=== PATIENT | male | born 1950 | race Caucasian/White ===

== ENCOUNTER 2017-06-01 08:23 | Day surgery (SDC) | payer MEDICARE, BC ==
[2017-05-30 10:09] VITALS: BMI 27.7
[~2017-06-01 08:23] MED LIST: LACTATED RINGERS 1,000 ML IV SCH
[2017-06-01 09:28] VITALS: TEMP 98.1
[2017-06-01] MEDS ORDERED: PROPOFOL 10 MG/ML 20 ML VIAL IV ONE (10:02)
--- NOTE | 2017-06-01 10:39 | P.PCN ---
Date of Procedure: 06/01/17 Procedure(s) Performed: Procedure: Total colonoscopy. Preoperative diagnosis: Screening for neoplasia. Postoperative diagnosis: Sigmoid diverticulosis with no evidence of acute diverticulitis, strictures, polyps or cancer Preparation: HalfLytely prep. Sedation: Was provided by anesthesia. Brief clinical history: The patient is a 66-year-old male who is referred for this evaluation for screening for neoplasia age being his risk factor. He had to prior exams over the years but there is no family history of colon cancer or any prior polyps that he recalls. At this time, he has no abdominal complaints , bleeding or anemia. Procedure: With the patient on his left lateral decubitus position and after informed consent and adequate sedation, the perianal area was inspected and it did not show any fissures or fistulas. There were no masses felt on digital rectal examination. The Olympus CFQ 160L video colonoscope was then inserted in the rectum in the usual fashion and advanced to the cecum. There were multiple diverticular orifices seen scattered in the sigmoid with no evidence of acute diverticulitis or strictures. The mucosa appeared healthy. No polyps or tumors were seen or any other pathology. I retroflexed the endoscope in the rectum before the endoscope was withdrawn. The patient tolerated the procedure well. Plan: The patient was reassured. Discussed dietary measures. He will follow up with you as planned and I recommended repeat exam in 10 years.
[2017-06-01 10:41] VITALS: RESP 16
[2017-06-01 10:51] VITALS: BP 119/65; PULSE 65
== END 2017-06-01 10:58 | disposition home or self-care (01) ==
LOC: ORWHC2ENDO 08:23
DX: Z12.11 Encounter for screening for malignant neoplasm of colon (principal); K57.30 Diverticulosis of large intestine without perforation or abscess without bleeding; I10 Essential (primary) hypertension; E78.5 Hyperlipidemia, unspecified; M19.90 Unspecified osteoarthritis, unspecified site; Z79.1 Long term (current) use of non-steroidal anti-inflammatories (NSAID); Z79.899 Other long term (current) drug therapy
CPT/HCPCS: J2704; G0121; 45378

== ENCOUNTER 2023-02-01 20:38 | Inpatient (IN) | payer BC, MEDICARE ==
[2023-02-01 21:54] LABS: Basophils % (A) 0 %; Eosinophils # (A) 0.1 k/uL (0-0.7); Eosinophils % (A) 0 %; HCT 32.2 % (39.0-53.0); HGB 10.6 gm/dL (13.0-17.5); Lymphocytes # (A) 1.2 k/uL (1.0-4.8); Lymphocytes % (A) 9 %; MCV 84.9 fL (80.0-100.0); Mean Platelet Volume 7.2; Monocytes # (A) 0.9 k/uL (0-1.0); Monocytes % (A) 7 %; Neutrophils # (A) 11.3 k/uL (1.3-7.7); Neutrophils % (A) 83 %; Platelet Count 260 k/uL (150-450); RBC 3.79 m/uL (4.30-5.90); WBC 13.6 k/uL (3.8-10.6)
[2023-02-01 22:00] LABS: ALT 98 U/L (4-49); AST 55 U/L (17-59); African American GFR (CKD) >90 (>60 ml/min/1.73 sqM); Albumin 3.1 g/dL (3.5-5.0); Alkaline Phosphatase 145 U/L (38-126); Anion Gap 10 mmol/L; Blood Urea Nitrogen 27 mg/dL (9-20); Calcium 8.7 mg/dL (8.4-10.2); Carbon Dioxide 22 mmol/L (22-30); Chloride 101 mmol/L (98-107); Glucose 154 mg/dL (74-99); Non-African American GFR(CKD) >90 (>60 ml/min/1.73 sqM); Potassium 4.2 mmol/L (3.5-5.1); Sodium 133 mmol/L (137-145); Total Bilirubin 0.6 mg/dL (0.2-1.3); Total Protein 6.1 g/dL (6.3-8.2)
--- NOTE | 2023-02-01 22:09 | XR ---
EXAMINATION TYPE: XR chest 1V portable DATE OF EXAM: 02/01/2023 10:02 PM COMPARISON: Chest radiographs from; 01/19/2023 TECHNIQUE: XR chest 1V portable Frontal view of the chest. CLINICAL INDICATION:Male, 72 years old with history of syncope; FINDINGS: Lungs/Pleura: Low lung volumes are present. There is no evidence of pleural effusion, focal consolida tion, or pneumothorax. Pulmonary vascularity: Unremarkable. Heart/mediastinum: Cardiomediastinal silhouette is enlarged and stable. Musculoskeletal: No acute osseous pathology. There is lower spine fixation hardware is present. IMPRESSION: Low lung volumes with a generalized hazy appearance which could represent atelectasis versus pulmonar y edema correlate with serum BNP.
[2023-02-01 22:17] LABS: Partial Thromboplastin Time 22.5 sec (22.0-30.0); Prothrombin Time 10.6 sec (9.0-12.0)
[2023-02-02] MEDS ORDERED: MORPHINE SULFATE 4 MG/ML SYRINGE IVP STA (00:08)
--- NOTE | 2023-02-02 00:20 | CT ---
EXAM: CT Thoracic Spine With Intravenous Contrast CLINICAL HISTORY: ITS.REASON CT Reason: Back pain, recent surg TECHNIQUE: Axial computed tomography images of the thoracic spine with intravenous contrast. CTDI is 16.2 mGy and DLP is 1302.4 mGy-cm. This CT exam was performed using one or more of the following dose reduction techniques: automated exposure control, adjustment of the mA and/or kV according to patient size, and/or use of iterative reconstruction technique. COMPARISON: No relevant prior studies available. FINDINGS: Vertebrae: There is a minimally displaced acute/subacute superior endplate fracture of the T12 vertebral body. Patient is status post posterior fusion of T10-L1 with transpedicular screws infection rods in place. No evidence of surgical hardware complication. Incomplete segmentation of the T3 and T4 segments. Discs/spinal canal/neural foramina: No acute findings. No spinal canal stenosis. Soft tissues: Right lower lobe consolidation with moderate pleural effusion. IMPRESSION: Minimally displaced acute/subacute superior endplate fracture of the T12 vertebral body status post posterior fusion of T10-L1 with expected postsurgical changes. 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 Right lower lobe consolidation with moderate pleural effusion. EXAM: CT Lumbar Spine With Intravenous Contrast CLINICAL HISTORY: ITS.REASON CT Reason: Back pain, recent surg TECHNIQUE: Axial computed tomography images of the lumbar spine with intravenous contrast. CTDI is 16.2 mGy and DLP is 1302.4 mGy-cm. This CT exam was performed using one or more of the following dose reduction techniques: automated exposure control, adjustment of the mA and/or kV according to patient size, and/or use of iterative reconstruction technique. COMPARISON: No relevant prior studies available. FINDINGS: Vertebrae: Chronic lytic spondylolisthesis of L5 on S1. Status post posterior fusion of T10-L1 with transpedicular screws and connecting rods in place. Minimally displaced fractures of the right L1 and L2 transverse processes. There is ankylosis of the sacroiliac joints. Positive Oldham sign at L3-4, L4-5 and L5-S1. Discs/spinal canal/neural foramina: No acute findings. No spinal canal stenosis. Soft tissues: There is a right renal soft tissue mass measuring 64 x 79 mm, incompletely visualized. Diverticulosis of the sigmoid colon. IMPRESSION: There is an acute/ subacute minimally displaced fractures of the right L1 and bilateral L2 transverse processes, which likely occurred concurrently with a T12 superior endplate fracture. Status post posterior fusion of T10-L1 with expected postsurgical changes. There is a right renal mass measuring 79 x 64 mm concerning for neoplasm. Chronic lytic spondylolisthesis of L5 on S1.
[2023-02-02] MEDS ORDERED: NALOXONE 0.4 MG/ML 1 ML VIAL IV PRN (03:46)
--- NOTE | 2023-02-02 03:48 | ED ---
General Adult HPI - General Chief complaint: Syncope Stated complaint: HIGH BLOOD PRESSURE Time Seen by Provider: 02/01/23 21:18 Source: patient Mode of arrival: EMS Limitations: no limitations - History of Present Illness Initial comments: This is a 72-year-old male with a past mental history including recent thoracic spine surgery as well as hypertension presents emergency department for intermittent hypotension as well as syncope. The patient stated that he had a fall in the bathtub and being in December and suffered spinal fractures which were repaired at an outside facility. The patient stated since that time, he has had low blood pressure with standing up and sitting up. The patient had been seen and evaluated in the clinic were a nurse practitioner put the patient on Midodrine for these low blood pressures despite the patient having normally high blood pressure. The patient stated that his blood pressure has been "all over the place" and stated that he did have a syncopal episode where he stood up and did fall back into his recliner. The patient stated that because of the orthostatic hypotension, he is unable to get up and move around and help rehabilitate his back from spinal surgery. 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 The patient himself was resting in bed without any acute distress at this time. - Related Data Home Medications Medication Instructions Recorded Confirmed Ibuprofen 400 mg PO Q8HR PRN 05/30/17 06/01/17 Simvastatin [Zocor] 40 mg PO Q48H 05/30/17 06/01/17 lisinopriL [Zestril] 20 mg PO DAILY 05/30/17 06/01/17 Allergies Allergy/AdvReac Type Severity Reaction Status Date / Time No Known Allergies Allergy Verified 02/01/23 20:47 Review of Systems ROS Statement: Those systems with pertinent positive or pertinent negative responses have been documented in the HPI. ROS Other: All systems not noted in ROS Statement are negative. Past Medical History Past Medical History: Hyperlipidemia, Hypertension, Osteoarthritis (OA) Additional Past Medical History / Comment(s): BACK PAIN T-10-11 FX History of Any Multi-Drug Resistant Organisms: None Reported Past Surgical History: Back Surgery Additional Past Surgical History / Comment(s): FOOT SURGERY, BACK FUSION T10-T11 Past Anesthesia/Blood Transfusion Reactions: No Reported Reaction, Motion Sickness Past Psychological History: No Psychological Hx Reported Past Alcohol Use History: Daily Past Drug Use History: None Reported - Past Family History Mother Family Medical History: Cancer Father Family Medical History: Cancer General Exam Limitations: no limitations General appearance: alert, in no apparent distress Head exam: Present: atraumatic, normocephalic, normal inspection Eye exam: Present: normal appearance, PERRL Pupils: Present: normal accommodation ENT exam: Present: normal exam, normal oropharynx, mucous membranes moist Neck exam: Present: normal inspection, full ROM Respiratory exam: Present: normal lung sounds bilaterally Cardiovascular Exam: Present: regular rate, normal rhythm, normal heart sounds GI/Abdominal exam: Present: soft, normal bowel sounds Extremities exam: Present: normal inspection, full ROM Back exam: Present: normal inspection, other (Surgical scar intact without any signs of erythema or induration noted.) Neurological exam: Present: alert, oriented X3, CN II-XII intact Psychiatric exam: Present: normal affect, normal mood Skin exam: Present: warm, dry Course Vital Signs 02/01/23 02/01/23 02/01/23 20:47 21:50 22:00 Temperature 100.1 F H Pulse Rate 98 92 93 Respiratory 16 14 12 Rate Blood Pressure 156/80 159/71 159/71 O2 Sat by Pulse 94 L 94 L 93 L Oximetry 02/01/23 02/02/23 02/02/23 23:00 00:00 00:10 Temperature Pulse Rate 91 85 85 Respiratory 20 13 16 Rate Blood Pressure 150/67 158/71 159/67 O2 Sat by Pulse 93 L 94 L 94 L Oximetry 02/02/23 02/02/23 02/02/23 01:00 02:00 02:10 Temperature Pulse Rate 80 77 75 Respiratory 12 12 16 Rate Blood Pressure 124/111 144/63 147/59 O2 Sat by Pulse 92 L 94 L 92 L Oximetry 02/02/23 02/02/23 03:00 04:00 Temperature Pulse Rate 82 79 Respiratory 12 12 Rate Blood Pressure 148/67 144/66 O2 Sat by Pulse 94 L 94 L Oximetry EKG Findings - EKG Comments: EKG Findings:: An EKG was obtained and was interpreted by myself showing a rate of 97, QRS duration 107 and QTC of 412. This EKG showed a normal sinus rhythm with no ST segment elevation or depression. Medical Decision Making - Medical Decision Making Was pt. sent in by a medical professional or institution (, PA, [employer]INEER, urgent care, hospital, or long term...) When possible be specific @ -No Did you speak to anyone other than the patient for history (EMS, parent, family, police, friend...)? What history was obtained from this source @ -Yes, I spoke with the patient's and sent her at the bedside and did state that the patient has become increasingly dizzy every time he sits up and stands. They also noted that the patient and normal high blood pressure and that on the new medication has become significantly elevated. Did you review nursing and triage notes (agree or disagree)? Why? @ -I reviewed and agree with nursing and triage notes Were old charts reviewed (outside hosp., previous admission, EMS record, old EKG, old radiological studies, urgent care reports/EKG's, long term records)? Report findings @ -No old charts were reviewed Differential Diagnosis (chest pain, altered mental status, abdominal pain women, abdominal pain men, vaginal bleeding, weakness, fever, dyspnea, syncope, headache, dizziness, GI bleed, back pain, seizure, CVA, palpatations, mental health)? @ -Orthostatic hypotension, postop complication, ACS EKG interpreted by me (3pts min.). @ -As above X-rays interpreted by me (1pt min.). @ -Chest x-ray was obtained and was interpreted by myself showing low lung volumes with a generalized hazy appearance which could represent atelectasis versus pulmonary edema. CT interpreted by me (1pt min.). @ -CT of the thoracic and lumbar spine was obtained and was interpreted by myself showing acute/subacute minimally displaced fractures of the right L1 and bilateral L2 transverse processes which are likely concurrent with the T12 superior endplate fracture that had been previously surgically fixed. There was posterior fusion postsurgical changes noted. There was a right renal mass measuring 79 x 64 mm concerning for neoplasm. There is a chronic lytic spondylosis listhesis of L5 on S1. U/S interpreted by me (1pt. min.). @ -None done What testing was considered but not performed or refused? (CT, X-rays, U/S, labs)? Why? @ -None What meds were considered but not given or refused? Why? @ -None Did you discuss the management of the patient with other professionals (professionals i.e. DrLucio, PA, WINDOWS IN[employer] ENGINEER, lab, RT, psych nurse, social services analyst, mount loader, teacher, risk officer, caser in)? Give summary @ -Yes, admitting physician was contacted regarding placing the patient in observation. Was smoking cessation discussed for >3mins.? @ -No Was critical care preformed (if so, how long)? @ -No Were there social determinants of health that impacted care today? How? (Homelessness, low income, unemployed, alcoholism, drug addiction, transportation, low edu. Level, literacy, decrease access to med. care, alf, rehab)? @ -No Was there de-escalation of care discussed even if they declined (Discuss DNR or withdrawal of care, Hospice)? DNR status @ -No What co-morbidities impacted this encounter? (DM, HTN, Smoking, COPD, CAD, Ca ncer, CVA, ARF, Chemo, Hep., AIDS, mental health diagnosis, sleep apnea, morbid obesity)? @ -Recent spinal surgery, hypertension Was patient admitted / discharged? Hospital course, mention meds given and route, prescriptions, significant lab abnormalities, going to OR and other pertinent info. @ -The patient was seen and evaluated emergency department. Physical exam, the patient was resting in bed without any acute distress. Vital signs admission were stable but did show a mild fever of 100.1F. Due to the patient's complaints, laboratory workup was obtained to rule out any infection as was imaging. White blood cell count was mildly elevated at 13.6 however there was no signs of further infection at this time. The remainder of the laboratory workup was within normal limits however due to the patient's syncope, will be placed in observation to be seen and evaluated by cardiology. This is what the patient's family and patient did request as they did originally have an appointment with a neurosurgeon tomorrow morning but stated they would prefer to stay in the emergency department and be admitted to be seen by cardiology for further workup of this intermittent hypotension as well as cardiac clearance for potential nephrectomy. The patient did continue to remain stable and was placed in observation in stable condition. Undiagnosed new problem with uncertain prognosis? @ -No Drug Therapy requiring intensive monitoring for toxicity (Heparin, Nitro, Insulin, Cardizem)? @ -No Were any procedures done? @ -No Diagnosis/symptom? @ -Syncope, intermittent hypotension Acute, or Chronic, or Acute on Chronic? @ -Acute on chronic Uncomplicated (without systemic symptoms) or Complicated (systemic symptoms)? @ -Complicated Side effects of treatment? @ -No Exacerbation, Progression, or Severe Exacerbation? @ -No Poses a threat to life or bodily function? How? (Chest pain, [place], MT, pneumonia, PE, COPD, DKA, ARF, appy, cholecystitis, CVA, Diverticulitis, Homicidal, Suicidal, threat to staff... and all critical care pts) @ -Yes, continued syncope and hypotension can lead to multiple falls and LOC leading to possible . - Lab Data Result diagrams: 02/01/23 21:07 02/01/23 21:07 Lab Results 02/01/23 02/01/23 02/01/23 Range/Units 21:07 21:07 21:07 WBC 13.6 H (3.8-10.6) k/uL RBC 3.79 L (4.30-5.90) m/uL Hgb 10.6 L (13.0-17.5) gm/dL Hct 32.2 L (39.0-53.0) % MCV 84.9 (80.0-100.0) fL MCH 28.0 (25.0-35.0) pg MCHC 33.0 (31.0-37.0) g/dL RDW 14.0 (11.5-15.5) % Plt Count 260 (150-450) k/uL MPV 7.2 Neutrophils % 83 % Lymphocytes % 9 % Monocytes % 7 % Eosinophils % 0 % Basophils % 0 % Neutrophils # 11.3 H (1.3-7.7) k/uL Lymphocytes # 1.2 (1.0-4.8) k/uL Monocytes # 0.9 (0-1.0) k/uL Eosinophils # 0.1 (0-0.7) k/uL Basophils # 0.0 (0-0.2) k/uL PT 10.6 (9.0-12.0) sec INR 1.0 (<1.2) APTT 22.5 (22.0-30.0) sec Sodium 133 L (137-145) mmol/L Potassium 4.2 (3.5-5.1) mmol/L Chloride 101 (98-107) mmol/L Carbon Dioxide 22 (22-30) mmol/L Anion Gap 10 mmol/L BUN 27 H (9-20) mg/dL Creatinine 0.61 L (0.66-1.25) mg/dL Est GFR (CKD-EPI)AfAm >90 (>60 ml/min/1.73 sqM) Est GFR (CKD-EPI)NonAf >90 (>60 ml/min/1.73 sqM) Glucose 154 H (74-99) mg/dL Calcium 8.7 (8.4-10.2) mg/dL Magnesium (1.6-2.3) mg/dL Total Bilirubin 0.6 (0.2-1.3) mg/dL AST 55 (17-59) U/L ALT 98 H (4-49) U/L Alkaline Phosphatase 145 H (38-126) U/L Troponin I (0.000-0.034) ng/mL NT-Pro-B Natriuret Pep pg/mL Total Protein 6.1 L (6.3-8.2) g/dL Albumin 3.1 L (3.5-5.0) g/dL 02/01/23 02/01/23 02/01/23 Range/Units 21:07 21:07 21:07 WBC (3.8-10.6) k/uL RBC (4.30-5.90) m/uL Hgb (13.0-17.5) gm/dL Hct (39.0-53.0) % MCV (80.0-100.0) fL MCH (25.0-35.0) pg MCHC (31.0-37.0) g/dL RDW (11.5-15.5) % Plt Count (150-450) k/uL MPV Neutrophils % % Lymphocytes % % Monocytes % % Eosinophils % % Basophils % % Neutrophils # (1.3-7.7) k/uL Lymphocytes # (1.0-4.8) k/uL Monocytes # (0-1.0) k/uL Eosinophils # (0-0.7) k/uL Basophils # (0-0.2) k/uL PT (9.0-12.0) sec INR (<1.2) APTT (22.0-30.0) sec Sodium (137-145) mmol/L Potassium (3.5-5.1) mmol/L Chloride (98-107) mmol/L Carbon Dioxide (22-30) mmol/L Anion Gap mmol/L BUN (9-20) mg/dL Creatinine (0.66-1.25) mg/dL Est GFR (CKD-EPI)AfAm (>60 ml/min/1.73 sqM) Est GFR (CKD-EPI)NonAf (>60 ml/min/1.73 sqM) Glucose (74-99) mg/dL Calcium (8.4-10.2) mg/dL Magnesium 1.9 (1.6-2.3) mg/dL Total Bilirubin (0.2-1.3) mg/dL AST (17-59) U/L ALT (4-49) U/L Alkaline Phosphatase (38-126) U/L Troponin I <0.012 (0.000-0.034) ng/mL NT-Pro-B Natriuret Pep 390 pg/mL Total Protein (6.3-8.2) g/dL Albumin (3.5-5.0) g/dL Disposition Clinical Impression: Syncope, Orthostatic hypotension Disposition: ADMITTED IP TO THIS [facility] Condition: Stable Is patient prescribed a controlled substance at d/c from ED?: No Time of Disposition: 23:00 Decision to Admit Reason: Admit from EC Decision Date: 02/01/23 Decision Time: 23:00
[2023-02-02] MEDS ORDERED: HYDROcodone/APAP 7.5-325MG 1 EACH TAB PO ONE (06:58)
[2023-02-02] MEDS: lisinopriL 5 MG TAB PO SCH ×2 (09:39→23:42)
--- NOTE | 2023-02-02 11:04 | P.CRDCN ---
History of Present Illness Consult date: 02/02/23 Consult reason: sycope (intermittent hypotension) History of present illness: History of present illness: This is a 72 year old male patient with past medical history of hypertension, hyperlipidemia, borderline diabetes, remote history of tobacco use. Patient gives history that he has had trouble with his blood pressure since December 19. At that time he had a fall in the bathroom causing rib fractures and a fracture to his back. He was in the [facility] and underwent surgical intervention on his spine and was discharged on January 10. 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 Barrios and is preparing for kidney resection. He has been cleared for surgery by Dr. Grimm and he has an appointment with Dr. Maria on February 24 for preop clearance. Patient states that about a week ago he was getting from a chair to commode chair with half a turn and passed out. He finds that his blood pressure when he is laying down is high and then when he stands up it drops. Yesterday, his blood pressure was low in the morning and by 6 PM it started going up. His blood pressure was finally at 232 systolic and decided to come into the hospital. He denies having any dizziness or syncopal episodes yesterday. He did have shaking and hot feeling but no documented fever. He denies having chest pain, shortness of breath, PND, palpitations. He normally sleeps with 2 pillows at night. He does state that he has been mostly in bed due to his recent surgery. While he was hospitalized at [place], his normal dose of lisinopril 20 mg was decreased to 10 mg and moved to the p.m. time. Regarding alcohol, patient was previously drinking 2-3 beers per day and now he he has been abstaining since his surgery. Patient quit smoking 25 years ago. Patient is seen today in the emergency center waiting for a bed on the observation unit. EKG sinus rhythm Chest x-ray: Low lung volumes with generalized hazy appearance which could represent atelectasis versus pulmonary edema. CAT scan of the thoracic spine reveals minimally displaced acute/subacute superior endplate fracture of the T12 vertebral body status post posterior fusion of T10-L1 with expected postsurgical changes. 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 Right lower lobe consolidation with moderate pleural effusion. Home cardiac medications: Lisinopril 10 mg daily at bedtime, Zocor 40 mg daily Echocardiogram 12/20/2022 performed in [place] revealed normal LV size, EF 75%, no structural valve pathology. Review Of Systems: At the time of my evaluation: Constitutional: No fever, no chills. No weakness, fatigue or lethargy. EENT: No headache. No dizziness. Lungs: No shortness of breath, cough, no sputum production. No wheezing. Cardiovascular: No chest pain, no lower extremity edema. No palpitations. No paroxysmal nocturnal dyspnea. No orthopnea. No lightheadedness or dizziness. No syncopal episodes. Abdominal: No abdominal pain. No nausea, vomiting. No diarrhea. No constipation. No bloody or tarry stools. Genitourinary: No dysuria.. No urinary retention. Musculoskeletal: No myalgias. No muscle weakness, no frequent falls. No back pain. No neck pain. Integumentary: No wounds. No rash. No unusual bruising. Neurologic: No aphasia. No facial droop. No change in mentation. No head injury. No headache. Physical examination: Gen: This is a 72-year-old male. He is resting on the ER stretcher and appears to be comfortable and in no acute distress VS: reviewed HEENT: Head is atraumatic, normocephalic. Pupils equal, round. Sclerae is anicteric. NECK: Supple. No JVD. . LUNGS: Clear to auscultation. No wheezes or rhonchi. No intercostal retractions. HEART: Regular rate and rhythm. No murmur. ABDOMEN: Soft No tenderness. EXTREMITIES: No pedal edema. No calf tenderness. NEUROLOGICAL: Patient is awake, alert and oriented x3. Assessment: Labile blood pressure secondary to being bedridden Recent spinal surgery Kidney mass preparing for surgery with urology Hypertension Hyperlipidemia Borderline diabetes Remote history of tobacco use and dependence Previous daily alcohol use Plan: Resume lisinopril at 5 mg twice daily Obtain orthostatic vital signs Patient instructed to continue pumping his feet prior to change in position Continue telemetry monitoring No need to repeat echocardiogram as this was done in December If patient is asymptomatic this afternoon, no other cardiac workup is planned and patient may be discharged home. He may follow up as scheduled on February [address] Maria. Thank you kindly for this consultation. Nurse practitioner note has been reviewed, I agree with documented findings and plan of care. Patient was seen and examined. Past Medical History Past Medical History: Hyperlipidemia, Hypertension, Osteoarthritis (OA) Additional Past Medical History / Comment(s): BACK PAIN T-10-11 FX History of Any Multi-Drug Resistant Organisms: None Reported Past Surgical History: Back Surgery Additional Past Surgical History / Comment(s): FOOT SURGERY, BACK FUSION T10-T11 Past Anesthesia/Blood Transfusion Reactions: No Reported Reaction, Motion Sickness Past Psychological History: No Psychological Hx Reported Past Alcohol Use History: Daily Past Drug Use History: None Reported - Past Family History Mother Family Medical History: Cancer Father Family Medical History: Cancer Medications and Allergies Home Medications Medication Instructions Recorded Confirmed Type Simvastatin [Zocor] 40 mg PO DAILY 05/30/17 02/02/23 History Acetaminophen Tab [Tylenol Tab] 500 - 1,000 mg PO Q6HR PRN 02/02/23 02/02/23 History Docusate [Colace] 100 mg PO DAILY PRN 02/02/23 02/02/23 History Folic Acid 1 mg PO DAILY 02/02/23 02/02/23 History HYDROcodone/APAP 5-325MG [[place] 1 tab PO TID PRN 02/02/23 02/02/23 History 5-325] Multivitamins, Thera [Multivitamin 1 tab PO DAILY 02/02/23 02/02/23 History (formulary)] allopurinoL [Zyloprim] 300 mg PO DAILY PRN 02/02/23 02/02/23 History lisinopriL [Prinivil] 10 mg PO DAILY 02/02/23 02/02/23 History Allergies Allergy/AdvReac Type Severity Reaction Status Date / Time No Known Allergies Allergy Verified 02/02/23 08:03 Physical Exam Vitals: Vital Signs Temp Pulse Resp BP Pulse Ox 02/02/23 06:50 98.6 F 02/02/23 06:00 80 12 162/74 95 02/02/23 04:00 79 12 144/66 94 L 02/02/23 03:00 82 12 148/67 94 L 02/02/23 02:10 75 16 147/59 92 L 02/02/23 02:00 77 12 144/63 94 L 02/02/23 01:00 80 12 124/111 92 L 02/02/23 00:10 85 16 159/67 94 L 02/02/23 00:00 85 13 158/71 94 L 02/01/23 23:00 91 20 150/67 93 L 02/01/23 22:00 93 12 159/71 93 L 02/01/23 21:50 92 14 159/71 94 L 02/01/23 20:47 100.1 F H 98 16 156/80 94 L Intake and Output 02/01/23 02/02/23 02/02/23 22:59 06:59 14:59 Other: Weight 108.862 kg Results 02/01/23 21:07 02/01/23 21:07 Cardiac Enzymes 02/01/23 02/01/23 Range/Units 21:07 21:07 AST 55 (17-59) U/L Troponin I <0.012 (0.000-0.034) ng/mL Coagulation 02/01/23 Range/Units 21:07 PT 10.6 (9.0-12.0) sec APTT 22.5 (22.0-30.0) sec CBC 02/01/23 Range/Units 21:07 WBC 13.6 H (3.8-10.6) k/uL RBC 3.79 L (4.30-5.90) m/uL Hgb 10.6 L (13.0-17.5) gm/dL Hct 32.2 L (39.0-53.0) % Plt Count 260 (150-450) k/uL Comprehensive Metabolic Panel 02/01/23 Range/Units 21:07 Sodium 133 L (137-145) mmol/L Potassium 4.2 (3.5-5.1) mmol/L Chloride 101 (98-107) mmol/L Carbon Dioxide 22 (22-30) mmol/L BUN 27 H (9-20) mg/dL Creatinine 0.61 L (0.66-1.25) mg/dL Glucose 154 H (74-99) mg/dL Calcium 8.7 (8.4-10.2) mg/dL AST 55 (17-59) U/L ALT 98 H (4-49) U/L Alkaline Phosphatase 145 H (38-126) U/L Total Protein 6.1 L (6.3-8.2) g/dL Albumin 3.1 L (3.5-5.0) g/dL Current Medications Generic Name Dose Route Start Last Admin Trade Name Freq PRN Reason Stop Dose Admin Naloxone HCl 0.2 mg 02/02/23 03:46 Naloxone 0.4 Mg/Ml 1 Ml Vial IV Q2M PRN Opioid Reversal Intake and Output 02/01/23 02/02/23 02/02/23 22:59 06:59 14:59 Other: Weight 108.862 kg 02/01/23 21:07 02/01/23 21:07
[2023-02-02] MEDS ORDERED: DOCUSATE 100 MG CAP PO PRN (11:13)
--- NOTE | 2023-02-02 11:18 | P.HPIM ---
History of Present Illness H&P Date: 02/02/23 Patient is a 72-year-old male with history of recent fall status post back surgery, renal mass, hypertension, dyslipidemia and gout presenting with labile blood pressure as well as orthostatic hypotension. He claims that over 2 months ago he started to experience orthostatic hypotension, sustaining a fall resulting in thoracic spine fracture. He underwent T10 to L1 fusion. During that time, imaging had also revealed right renal mass concerning for malignancy. He is pending right nephrectomy. He continues to have significant orthostatic hypotension. He was seen by his primary, and was started on midodrine and, however, taking 1 tablet brought his blood pressure high. Medication was discontinued. Currently while lying in bed, he denies any chest pain, shortness of breath, lightheadedness, abdominal pain, nausea, vomiting, diarrhea, constipation, or urinary complaints. He continues to have back pain. Is a former smoker, prior daily alcohol use, denies any illicit drug use. In the ED, blood pressure on arrival was 156/80, temperature 100.1, pulse 98, respiratory rate 16, saturating at 94% on room air. WBC 13.6, hemoglobin 10.6, sodium 133, creatinine 0.61, magnesium 1.9, negative troponin, proBNP 390. Thoracic lumbar spine CT shows acute/subacute minimally displaced fractures of the right L1 and bilateral L2 transverse processes, and T12 superior endplate fracture status post posterior fusion of T10 -L1, right renal mass measuring 8 x 6 cm concerning for neoplasm. Chest x-ray showed possible pulmonary vascular congestion versus atelectasis. EKG shows normal sinus rhythm, with no significant ST-T wave changes. Patient admitted for orthostatic h ypotension/presyncope, labile blood pressure. Pertinent positives and negatives as discussed in HPI, a complete review of systems was performed and all other systems are negative. Patient seen and examined at bedside. Vital signs reviewed General: nontoxic, no distress, appears at stated age Derm: warm, dry Head: atraumatic, normocephalic, symmetric Eyes: EOMI, no lid lag, anicteric sclera, pupils equal round reactive to light ENT: Nose and ears atraumatic Neck: No thyromegaly, supple Mouth: no lip lesion, mucus membranes moist Cardiovascular: S1S2 reg, no murmur, no edema Lungs: clear to auscultation bilateral, no rhonchi, no rales, no wheeze, no accessory muscle use Abdominal: soft, nontender to palpation, no guarding, no appreciable organomegaly Ext: no gross muscle atrophy, muscle strength muscle strength 5 out of 5 in all 4 extremities, no contractures Neuro: CN II-XII grossly intact Psych: Alert, oriented, appropriate affect Assessment/Plan: Active: Labile blood pressure History of hypertension Recent spinal surgery Right renal mass -EKG personally interpreted, shows normal sinus rhythm, no significant ST-T wave changes -Patient likely has orthostatic hypotension -Orthostatic vitals pending -He previously had echocardiogram done in December -Was supposed to see cardiology in office in 1 week -Cardiology was consulted, pending orthostatic vitals, if asymptomatic, patient may be discharged -Orthostatic hypotension possibly in the setting of prolonged bedrest -Secondary autonomic failure less likely to be the cause orthostasis -Restarted on lisinopril by cardiology -Right renal mass appears to be in the lower pole of right kidney, unlikely to be involving the right adrenal gland -He is pending nephrectomy Chronic: Dyslipidemia The patient is admitted with an anticipated less than 2 midnight stay as observation status for evaluation of labile blood pressure. Surrogate decision-maker: CODE STATUS: Full code DVT prophylaxis: Lovenox Anticipated discharge date: Today or tomorrow Anticipated discharge place: Likely home A total of 55 minutes was spent on the care of this complex patient more than 50% of the time was spent in counseling and care coordination. Past Medical History Past Medical History: Hyperlipidemia, Hypertension, Osteoarthritis (OA) Additional Past Medical History / Comment(s): BACK PAIN T-10-11 FX History of Any Multi-Drug Resistant Organisms: None Reported Past Surgical History: Back Surgery Additional Past Surgical History / Comment(s): FOOT SURGERY, BACK FUSION T10-T11 Past Anesthesia/Blood Transfusion Reactions: No Reported Reaction, Motion Sickness Past Psychological History: No Psychological Hx Reported Past Alcohol Use History: Daily Past Drug Use History: None Reported - Past Family History Mother Family Medical History: Cancer Father Family Medical History: Cancer Medications and Allergies Home Medications Medication Instructions Recorded Confirmed Type Simvastatin [Zocor] 40 mg PO DAILY 05/30/17 02/02/23 History Acetaminophen Tab [Tylenol Tab] 500 - 1,000 mg PO Q6HR PRN 02/02/23 02/02/23 History Docusate [Colace] 100 mg PO DAILY PRN 02/02/23 02/02/23 History Folic Acid 1 mg PO DAILY 02/02/23 02/02/23 History HYDROcodone/APAP 5-325MG [[place] 1 tab PO TID PRN 02/02/23 02/02/23 History 5-325] Multivitamins, Thera [Multivitamin 1 tab PO DAILY 02/02/23 02/02/23 History (formulary)] allopurinoL [Zyloprim] 300 mg PO DAILY PRN 02/02/23 02/02/23 History lisinopriL [Prinivil] 10 mg PO DAILY 02/02/23 02/02/23 History Allergies Allergy/AdvReac Type Severity Reaction Status Date / Time No Known Allergies Allergy Verified 02/02/23 08:03 Physical Exam Vitals: Vital Signs Temp Pulse Resp BP Pulse Ox 02/02/23 09:00 66 9 L 135/62 93 L 02/02/23 08:00 77 13 164/70 94 L 02/02/23 06:50 98.6 F 02/02/23 06:00 80 12 162/74 95 02/02/23 04:00 79 12 144/66 94 L 02/02/23 03:00 82 12 148/67 94 L 02/02/23 02:10 75 16 147/59 92 L 02/02/23 02:00 77 12 144/63 94 L 02/02/23 01:00 80 12 124/111 92 L 02/02/23 00:10 85 16 159/67 94 L 02/02/23 00:00 85 13 158/71 94 L 02/01/23 23:00 91 20 150/67 93 L 02/01/23 22:00 93 12 159/71 93 L 02/01/23 21:50 92 14 159/71 94 L 02/01/23 20:47 100.1 F H 98 16 156/80 94 L Intake and Output 02/01/23 02/02/23 02/02/23 22:59 06:59 14:59 Other: Weight 108.862 kg Results CBC & Chem 7: 02/01/23 21:07 02/01/23 21:07 Labs: Abnormal Lab Results - Last 24 Hours (Table) 02/01/23 02/01/23 Range/Units 21:07 21:07 WBC 13.6 H (3.8-10.6) k/uL RBC 3.79 L (4.30-5.90) m/uL Hgb 10.6 L (13.0-17.5) gm/dL Hct 32.2 L (39.0-53.0) % Neutrophils # 11.3 H (1.3-7.7) k/uL Sodium 133 L (137-145) mmol/L BUN 27 H (9-20) mg/dL Creatinine 0.61 L (0.66-1.25) mg/dL Glucose 154 H (74-99) mg/dL ALT 98 H (4-49) U/L Alkaline Phosphatase 145 H (38-126) U/L Total Protein 6.1 L (6.3-8.2) g/dL Albumin 3.1 L (3.5-5.0) g/dL
[2023-02-02] MEDS: HYDROcodone/APAP 5-325MG 1 EACH TAB PO PRN (16:52)
[2023-02-02] MEDS: MORPHINE SULFATE 2 MG/ML SYRINGE IVP PRN (20:34)
[2023-02-02] MEDS ORDERED: HYDROmorphone 0.5 MG/0.5 ML SYRINGE IVP STA (23:30)
[2023-02-03] MEDS: MORPHINE SULFATE 2 MG/ML SYRINGE IVP PRN (04:17)
[2023-02-03 06:27] LABS: Basophils % (A) 0 %; Eosinophils # (A) 0.1 k/uL (0-0.7); Eosinophils % (A) 1 %; HCT 29.6 % (39.0-53.0); HGB 9.7 gm/dL (13.0-17.5); Lymphocytes % (A) 9 %; MCH 27.8 pg (25.0-35.0); MCHC 32.6 g/dL (31.0-37.0); MCV 85.1 fL (80.0-100.0); Mean Platelet Volume 7.2; Monocytes # (A) 0.9 k/uL (0-1.0); Monocytes % (A) 8 %; Neutrophils # (A) 9.1 k/uL (1.3-7.7); Neutrophils % (A) 81 %; Platelet Count 283 k/uL (150-450); RBC 3.48 m/uL (4.30-5.90); WBC 11.3 k/uL (3.8-10.6)
[2023-02-03 06:31] LABS: African American GFR (CKD) >90 (>60 ml/min/1.73 sqM); Anion Gap 7 mmol/L; Blood Urea Nitrogen 16 mg/dL (9-20); Calcium 8.9 mg/dL (8.4-10.2); Carbon Dioxide 26 mmol/L (22-30); Chloride 99 mmol/L (98-107); Glucose 133 mg/dL (74-99); Non-African American GFR(CKD) >90 (>60 ml/min/1.73 sqM); Potassium 4.4 mmol/L (3.5-5.1); Sodium 132 mmol/L (137-145)
[2023-02-03] MEDS: HYDROcodone/APAP 5-325MG 1 EACH TAB PO PRN ×2 (06:51→13:13)
[2023-02-03] MEDS: ATORVASTATIN 20 MG TAB PO SCH (08:17)
[2023-02-03] MEDS: FOLIC ACID 1 MG TAB PO SCH (08:17)
[2023-02-03] MEDS: lisinopriL 5 MG TAB PO SCH ×2 (08:17→20:07)
--- NOTE | 2023-02-03 09:13 | P.PN ---
Subjective Progress Note Date: 02/03/23 History of present illness: This is a 72 year old male patient with past medical history of hypertension, hyperlipidemia, borderline diabetes, remote history of tobacco use. Patient gives history that he has had trouble with his blood pressure since December 19. At that time he had a fall in the bathroom causing rib fractures and a fracture to his back. He was in the [facility] and underwent surgical intervention on his spine and was discharged on January 10. 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 Barrios and is preparing for kidney resection. He has been cleared for surgery by Dr. Grimm and he has an appointment with Dr. Maria on February 24 for preop clearance. Patient states that about a week ago he was getting from a chair to commode chair with half a turn and passed out. He finds that his blood pressure when he is laying down is high and then when he stands up it drops. Yesterday, his blood pressure was low in the morning and by 6 PM it started going up. His blood pressure was finally at 232 systolic and decided to come into the hospital. He denies having any dizziness or syncopal episodes yesterday. He did have shaking and hot feeling but no documented fever. He denies having chest pain, shortness of breath, PND, palpitations. He normally sleeps with 2 pillows at night. He does state that he has been mostly in bed due to his recent surgery. While he was hospitalized at [place], his normal dose of lisinopril 20 mg was decreased to 10 mg and moved to the p.m. time. Regarding alcohol, patient was previously drinking 2-3 beers per day and now he he has been abstaining since his surgery. Patient quit smoking 25 years ago. Patient is seen today in the emergency center waiting for a bed on the observation unit. EKG sinus rhythm Chest x-ray: Low lung volumes with generalized hazy appearance which could represent atelectasis versus pulmonary edema. CAT scan of the thoracic spine reveals minimally displaced acute/subacute superior endplate fracture of the T12 vertebral body status post posterior fusion of T10-L1 with expected postsurgical changes. 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 Right lower lobe consolidation with moderate pleural effusion. Home cardiac medications: Lisinopril 10 mg daily at bedtime, Zocor 40 mg daily Echocardiogram 12/20/2022 performed in [place] revealed normal LV size, EF 75%, no structural valve pathology. 02/03 Patient is seen today on the observation unit. He is complaining of unbearable back pain. He states that prior to coming to the hospital, he was often [place] and only utilizing Tylenol as needed and pain was controlled. Due to the ambulance transport and multiple moves from the stretcher to bed, he is now experiencing seen significant pain. Yesterday, we changed lisinopril to 5 mg twice daily. Blood pressure is 155/72, heart rate in the 80s, pulse ox 93% on room air. Patient has not had an opportunity to sit up and get out of bed due to the back pain. He denies having any dizziness or lightheadedness, chest pain. No palpitations. Telemetry is in a sinus rhythm. Physical examination: Gen: This is a 72-year-old male. He is resting in bed and appears to be uncomfortable secondary to back pain VS: reviewed HEENT: Head is atraumatic, normocephalic. Pupils equal, round. Sclerae is anicteric. NECK: Supple. No JVD. . LUNGS: Clear to auscultation. No wheezes or rhonchi. No intercostal retractions. HEART: Regular rate and rhythm. No murmur. ABDOMEN: Soft No tenderness. EXTREMITIES: No pedal edema. No calf tenderness. NEUROLOGICAL: Patient is awake, alert and oriented x3. Assessment: Labile blood pressure secondary to being bedridden Recent spinal surgery Kidney mass preparing for surgery with urology Hypertension Hyperlipidemia Borderline diabetes Remote history of tobacco use and dependence Previous daily alcohol use Plan: Continue lisinopril at 5 mg twice daily Obtain orthostatic vital signs Patient instructed to continue pumping his feet prior to change in position Continue telemetry monitoring No need to repeat echocardiogram as this was done in December No further adjustments will be made to his blood pressure medications and fear that when he stands, blood pressure will drop the saw him. At this time, systolic in the 150s is except double and once back pain is stabilized, blood pressure can be managed as an outpatient. Patient is cleared from cardiology for discharge and will follow-up with Dr. Maria next week on Monday. Nurse practitioner note has been reviewed, I agree with documented findings and plan of care. Patient was seen and examined. Objective - Vital Signs Vital signs: Vital Signs Temp 99.0 F 02/03/23 03:27 Pulse 83 02/03/23 03:27 Resp 18 02/03/23 03:27 BP 155/72 02/03/23 03:27 Pulse Ox 93 L 02/03/23 08:12 FiO2 Intake & Output 02/02/23 02/03/23 02/03/23 18:59 06:59 18:59 Weight 108.862 kg Other: # Voids 1 - Labs CBC & Chem 7: 02/03/23 05:36 02/03/23 05:36 Labs: Abnormal Lab Results - Last 24 Hours (Table) 02/03/23 02/03/23 Range/Units 05:36 05:36 WBC 11.3 H (3.8-10.6) k/uL RBC 3.48 L (4.30-5.90) m/uL Hgb 9.7 L (13.0-17.5) gm/dL Hct 29.6 L (39.0-53.0) % Neutrophils # 9.1 H (1.3-7.7) k/uL Sodium 132 L (137-145) mmol/L Creatinine 0.62 L (0.66-1.25) mg/dL Glucose 133 H (74-99) mg/dL
[2023-02-03] MEDS ORDERED: HYDROmorphone 1 MG/ML 1 ML SYRINGE IVP PRN (10:10)
[2023-02-03] MEDS ORDERED: HYDROmorphone 0.5 MG/0.5 ML SYRINGE IVP PRN (10:10)
--- NOTE | 2023-02-03 13:10 | CT ---
EXAMINATION TYPE: CT thor lumbar spine w con DATE OF EXAM: 02/03/2023 COMPARISON: 02/01/2023 HISTORY: 72-year-old male Recent Sx T12 for fx, purulent discharge TECHNIQUE: Contiguous axial scanning of the thoracic and lumbar spine performed with IV Contrast, pat ient injected with 100 mL of Isovue 300. Coronal/sagittal reconstructions performed. CT DLP: 1987.10 mGycm Automated exposure control for dose reduction was used. FINDINGS: There is throughout the spine extending down to the L3 level. Patient's known transverse fracture through the superior endplate of T12 and through the posterior el ements is also redemonstrated as is the posterior lumbar fusion from T10 through L1. Alignment is maintained. Ongoing paravertebral soft tissue swelling. Ongoing small to moderate right pleural effusion and depe ndent bilateral atelectasis.. Mild retropulsion contributing to mild focal spinal canal stenosis at this level is unchanged. A few foci of air within the posterior soft tissues is unchanged. Subacute to chronic incompletely united left posterior 11th and 12th rib fractures. There are 6 lumbar type vertebral bodies. L6 bilateral pars defects with grade 1 anterolisthesis L6-S1. Hypertrophic facet arthropathy mid to l ower lumbar spine with variable moderate neural foraminal stenoses. There appears to be a large mass in the lower pole of the right kidney measuring up to 7.9 cm AP and 8.0 cm craniocaudal. Degenerative bony ankylosis at the SI joints. IMPRESSION: 1. NOTE HETEROGENEOUSLY ENHANCING MASS LOWER POLE RIGHT KIDNEY MEASURING 8.0 CM. Findings concerning for RCC. Recommend further urology evaluation. 2. DISH from T1 through the L3 level. Posterior fusion T10-L1 with known transverse fracture through the superior aspect of the T12 vertebral body. Similar mild retropulsion at this level contributes to mild spinal canal narrowing. 3. Prominent paravertebral soft tissue swelling remains at the T12 level. Overall similar appearance to 02/01/2023. Correlate with inflammatory markers, WBC count, and additional short interval follow-up if any suspicion for underlying infection. 4. Small foci of air remain in the posterior soft tissues suggesting fairly recent surgery. No obviou s sizable fluid collection is seen. 5. Continued small right and trace left effusions with prominent adjacent atelectasis.
--- NOTE | 2023-02-03 14:07 | P.PN ---
Subjective Progress Note Date: 02/03/23 Patient is a 72-year-old male with history of recent fall with T12 fracture requiring surgery at and a 23 days hopstial stay in [place], [place], recnetly discovered renal mass, hypertension, dyslipidemia and gout who presented with labile blood pressure and orthostatic hypotension. Apparently, 2 months ago he started to experience orthostatic hypotension, sustaining a fall resulting in thoracic spine fracture. He underwent T10 to L1 fusion on December 20 discharged on January 10.. During that hopsital stay, imaging had also revealed right renal mass concerning for malignancy. He is pending right nephrectomy. He continues to struggle with orthostatic hypotension. He was started on midodrine by his PCP but taking 1 tablet brought his blood pressure high and this was discontinued. Patient seen and examined at bedside with present. She relays the story as listed above with recent hospitalization. They were scheduled to see a neurosurgeon regarding wound dehiscence. She has been packing the wound and changing dressings. She states initially the wound was healing well but has since started to come apart. He also developed a pressure ulcer on his buttock during his hospital stay in [place]. He reports that at home he had been doing well and was only requiring Tylenol for pain control. Since history here to the hospital and his initial CT scan of the spine he has had increased back pain and it is severe and requiring IV Dilaudid. He report that they had dif ficulty getting him out of the CT scanner and he felt like his feet got caught and he been having increased pain since then. He denies any numbness or tingling in his arms or in his legs he denies any upper or lower extremity weakness. He is frustrated about his worsening back pain and wound dehiscence. Vital signs reviewed General: Ill appearing, no distress, appears at stated age Cardiovascular: S1S2 reg, no murmur, positive posterior tibial pulse bilateral, Lungs: CTA bilateral, no rhonchi, no rales , no accessory muscle use Abdominal: soft, nontender to palpation, no guarding, no appreciable organomegaly Ext: no gross muscle atrophy, no edema b/l lower extremities, no contractures Neuro: CN II-XI grossly intact, no focal neuro deficits Dermatology: Incision on midline thoracic spine noted to have wound he hasn't at the caudad portion with ability to probe down to 0.5-1 cm it is approximately quarter-sized and when dressing is removed and immediately drains thin yellow discharge. There is opening of the wound on the cephalad portion which is half dollar in size and able to probe down to approximately 1.5 cm with no exposure of metallic hardware. There is significant malodor to this wound. There is a small quarter sized area of the skin breakdown to the left of midline of the coccyx, unstagable. Psych: Alert, oriented, appropriate affect Assessment: Wound dehiscence of thoracic spine wound-concern for possible infection given regression of healing and Tmx 100.1 on arrival and WBC 11.3 - consult Dr. Kang, case discussed YONIS will eval patient today - CT thorasic and lumbar spine to evaluate for abscess - Dilaudid 0.5 -1 mg pased layne pain scale every 3 hours, norco 7.5 mg 2 tablets every 4 hours and valium 5 mg TID prn - Off load wound with frequent turns - Culture obtain by me of drainage from caudid wound. coccyx pressure ulcer, POA - consult wound care - barrier cream frequent turns Labile blood pressures with orthostatic hypotension HX HTN - of note the orthostatic hypotension caused his fall resulting in back surgery so his liable blood pressure seems to predate his fall/surgery - cardio note reviewed, suspected related to recent bedridder state, lisnopril 5mg dialy -Patient is currently refusing orthostatic vitals due to pain with movement. - follow BP Right kidney mass - will be having surgery with urology once gets cardio clearence, has outpatient appt on 02/08. Imaging: CT thoracic spine: Minimally displaced acute/subacute superior endplate fracture of the T12 vertebral body status post T10 to L1 posterior fusion, right lower lobe consolidation with moderate pleural effusion, acute to subacute minimally displaced fractures of L1 transverse process on the right and L2 transverse processes bilaterally, right renal mass, spondylolisthesis L5/S1 Data Review: T-max in the last 24 hours 99, pulse 83, blood pressure 155/72, O2 sat 93% on room air. Laboratory analysis remarkable for white blood cell count 11.3, hemoglobin 9.7, sodium 132 Transition to inpatient status givne wound dehisence and need for further evlaution. DVT prophylaxis: Hepairn Anticipated discharge date: Pending Clinical Course Anticipated discharge place: Pending Clinical Course This dictation was prepared using [employer] voice recognition software. Though every attempt is made to correct errors during dictation some may still exist. Objective - Vital Signs Vital signs: Vital Signs Temp 98.6 F 02/03/23 07:45 Pulse 75 02/03/23 07:45 Resp 16 02/03/23 07:45 BP 130/69 02/03/23 07:45 Pulse Ox 93 L 02/03/23 08:12 FiO2 Intake & Output 02/02/23 02/03/23 02/03/23 18:59 06:59 18:59 Intake Total 118 Balance 118 Weight 108.862 kg Intake: Oral 118 Other: Voiding Method Urinal # Voids 1 - Labs CBC & Chem 7: 02/03/23 05:36 02/03/23 05:36 Labs: Abnormal Lab Results - Last 24 Hours (Table) 02/03/23 02/03/23 Range/Units 05:36 05:36 WBC 11.3 H (3.8-10.6) k/uL RBC 3.48 L (4.30-5.90) m/uL Hgb 9.7 L (13.0-17.5) gm/dL Hct 29.6 L (39.0-53.0) % Neutrophils # 9.1 H (1.3-7.7) k/uL Sodium 132 L (137-145) mmol/L Creatinine 0.62 L (0.66-1.25) mg/dL Glucose 133 H (74-99) mg/dL
[2023-02-03 15:01] VITALS: BMI 27.7
[2023-02-03] MEDS: HYDROcodone/APAP 7.5-325MG 1 EACH TAB PO PRN ×3 (16:09→23:49)
[2023-02-03] MEDS: diazePAM 5 MG TAB PO PRN (16:10)
[2023-02-03] MEDS: HEPARIN SODIUM,PORCINE/PF 5,000 UNIT/0.5 ML SYRINGE SQ SCH ×2 (16:10→20:08)
[2023-02-04] MEDS: HYDROcodone/APAP 7.5-325MG 1 EACH TAB PO PRN ×5 (04:52→23:18)
[2023-02-04 06:33] LABS: HCT 29.2 % (39.0-53.0); HGB 9.5 gm/dL (13.0-17.5); Hypochromasia Slight; MCH 27.5 pg (25.0-35.0); MCHC 32.6 g/dL (31.0-37.0); MCV 84.3 fL (80.0-100.0); Mean Platelet Volume 7.5; Platelet Count 310 k/uL (150-450); RBC 3.46 m/uL (4.30-5.90); RDW 14.1 % (11.5-15.5); WBC 12.5 k/uL (3.8-10.6)
[2023-02-04 07:03] LABS: African American GFR (CKD) >90 (>60 ml/min/1.73 sqM); Anion Gap 7 mmol/L; Blood Urea Nitrogen 22 mg/dL (9-20); Calcium 8.9 mg/dL (8.4-10.2); Carbon Dioxide 27 mmol/L (22-30); Chloride 98 mmol/L (98-107); Glucose 121 mg/dL (74-99); Non-African American GFR(CKD) >90 (>60 ml/min/1.73 sqM); Potassium 4.3 mmol/L (3.5-5.1); Sodium 132 mmol/L (137-145)
--- NOTE | 2023-02-04 07:28 | XR ---
EXAMINATION TYPE: XR chest 1V portable DATE OF EXAM: 02/04/2023 7:11 AM COMPARISON: Chest radiographs from 02/01/2023 TECHNIQUE: XR chest 1V portable Frontal view of the chest. CLINICAL INDICATION:Male, 72 years old with history of PNA; FINDINGS: Lungs/Pleura: There is no evidence of pleural effusion, focal consolidation, or pneumothorax. Pulmonary vascularity: Unremarkable. Heart/mediastinum: Cardiomediastinal silhouette is unremarkable. Musculoskeletal: No acute osseous pathology. There is lower spine fixation hardware is present. IMPRESSION: Stable exam with no definitive evidence for focal consolidation.
[2023-02-04] MEDS: lisinopriL 5 MG TAB PO SCH (07:42)
[2023-02-04] MEDS: ATORVASTATIN 20 MG TAB PO SCH (07:43)
[2023-02-04] MEDS: FOLIC ACID 1 MG TAB PO SCH (07:43)
[2023-02-04] MEDS: HEPARIN SODIUM,PORCINE/PF 5,000 UNIT/0.5 ML SYRINGE SQ SCH ×3 (07:43→23:26)
[2023-02-04] MEDS: diazePAM 5 MG TAB PO PRN (07:48)
[2023-02-04 08:09] LABS: Erythrocyte Sedimentation Rate 118 mm/hr (0-15)
[2023-02-04] MEDS ORDERED: MAGNESIUM HYDROXIDE 2,400 MG/10 ML CUP PO PRN (08:35)
[2023-02-04] MEDS ORDERED: VANCOMYCIN IV PER PHARMACY 1 EACH MISC MISCELLANE PRN (08:53)
--- NOTE | 2023-02-04 09:01 | P.CNOR ---
History of Present Illness - [facility] Consult date: 02/03/23 Requesting physician: Chiara Anne Consult reason: other (back pain, recent surgery) History of present illness: Patient is a 72-year-old male who presented to the emergency department [facility] a couple days ago due to bouts of hypotension and syncope. Patient also has a recent history of thoracic spine surgery due to a T12 fracture. Patient did have T10 to L1 fusion on 12/20/2022 performed in [facility]. Patient was seen at bedside this afternoon with a couple family members present during the encounter. Patient says when he was at his cabin back at the end of November/early December he had a fall in the bathtub where he suffered injury to his back. Patient did have a CT of the thoracic spine which did show hardware from T10 to L1 which appeared to be stable and intact at this time. There was a renal mass found on the imaging as well. Urology, Dr. Barrios is following this. Patient's family says that urology does want to remove the renal mass pending c ardiology clearance. Orthopedics has been consulted due to patient's recent back surgery and nonhealing incision. Patient says he is currently in a lot of activity pain and he does not want his spine to be evaluated at this time. Patient's family says he has had a lot of bouts of orthostatic hypotension for which she has followed with medicine and cardiology. Patient denies any numbness/tingling down the bilateral lower extremities. Patient denies any loss of bowel/bladder control. Patient states most if not all the pain is located in the mid back and flanks. Patient denies chest pain, fever, shortness breath, nausea, vomiting, change in vision, loss of bowel/bladder control. Past Medical History Past Medical History: Hyperlipidemia, Hypertension, Osteoarthritis (OA) Additional Past Medical History / Comment(s): BACK PAIN T-10-11 FX History of Any Multi-Drug Resistant Organisms: None Reported Past Surgical History: Back Surgery Additional Past Surgical History / Comment(s): FOOT SURGERY, BACK FUSION T10-T11 Past Anesthesia/Blood Transfusion Reactions: No Reported Reaction, Motion Sickness Past Psychological History: No Psychological Hx Reported Smoking Status: Former smoker Past Alcohol Use History: Daily Additional Past Alcohol Use History / Comment(s): QUIT SMOKING 1996. SMOKED 1 PPD FOR APPROX 30 YEARS. stopped drinking when he fell, normally DRINKS 3-4 DRINKS DAILY Past Drug Use History: None Reported - Past Family History Mother Family Medical History: Cancer Father Family Medical History: Cancer Medications and Allergies Home Medications Medication Instructions Recorded Confirmed Type Simvastatin [Zocor] 40 mg PO DAILY 05/30/17 02/02/23 History Acetaminophen Tab [Tylenol Tab] 500 - 1,000 mg PO Q6HR PRN 02/02/23 02/02/23 History Docusate [Colace] 100 mg PO DAILY PRN 02/02/23 02/02/23 History Folic Acid 1 mg PO DAILY 02/02/23 02/02/23 History HYDROcodone/APAP 5-325MG [[place] 1 tab PO TID PRN 02/02/23 02/02/23 History 5-325] Multivitamins, Thera [Multivitamin 1 tab PO DAILY 02/02/23 02/02/23 History (formulary)] allopurinoL [Zyloprim] 300 mg PO DAILY PRN 02/02/23 02/02/23 History lisinopriL [Prinivil] 10 mg PO DAILY 02/02/23 02/02/23 History Allergies Allergy/AdvReac Type Severity Reaction Status Date / Time No Known Allergies Allergy Verified 02/02/23 08:03 Physical Examination Inspection: Incision about 8 inches in length in the mid back appears to be nonhealing at this time. Incision appears to be open with areas of purulence at the superior portion as well as the distal end. Incision does present with some purulence. Negative for any active drainage. Negative for any significant ecchymosis. Negative for any open fractures Sensation: Sensation is equal, symmetric, bilaterally throughout the upper and lower extremities Palpation: Moderate TTP over the back at midline knee incision and in the bilateral flanks. Nontender to palpation throughout rest of exam Range of motion: Patient has full range of motion bilateral upper extremities on exam. Patient does have full range of motion bilateral ankles in dorsi/plantar flexion and EHL/FHL. There is limited range of motion and bilateral hips and flexion extension secondary to referred pain from the back. Motor: 4+/5 in all major motor was in bilateral upper extremities. 4+/5 in all major motor was in bilateral lower extremities. Neurovascular status: Radial pulse intact, 2+ bilaterally. Cap refill under 3 seconds in digits of the upper extremities Special tests: Negative Homans bilaterally. Negative clonus bilateral. Negative Bernie bilaterally. Results - Labs Labs: Abnormal Lab Results - Last 24 Hours (Table) 02/03/23 02/03/23 Range/Units 05:36 05:36 WBC 11.3 H (3.8-10.6) k/uL RBC 3.48 L (4.30-5.90) m/uL Hgb 9.7 L (13.0-17.5) gm/dL Hct 29.6 L (39.0-53.0) % Neutrophils # 9.1 H (1.3-7.7) k/uL Sodium 132 L (137-145) mmol/L Creatinine 0.62 L (0.66-1.25) mg/dL Glucose 133 H (74-99) mg/dL H & H 02/01/23 02/03/23 Range/Units 21:07 05:36 Hgb 10.6 L 9.7 L (13.0-17.5) gm/dL Hct 32.2 L 29.6 L (39.0-53.0) % Coagulation 02/01/23 Range/Units 21:07 INR 1.0 (<1.2) Result Diagrams: 02/04/23 05:56 02/04/23 05:56 - Diagnostic results Comments: CT of thoracic spine does show DISH from T1 through L3. Posterior fusion is present from T10-L1 with hardware appears to be stable and intact. Assessment and Plan Assessment: 1. History of recent T10-L1 decompression fusion for T12 fracture; nonhealing incision; DISH; Plan: 1. History of recent T10-L1 decompression fusion for T12 fracture; nonhealing incision; DISH - CT of thoracic spine does show DISH from T1 through L3. Posterior fusion is present from T10-L1 with hardware appears to be stable and intact. Renal mass found on the lower pole of the right kidney. Urology following. Medicine did take culture of back wound today. Cultures still pending at this time. Dressing present over incision of this time. At this time we're not recommending any emergent orthopedic surgical intervention. We will wait cultures at this time. I will discuss findings with my attending, Dr. Kang before proceeding with any potential intervention. Pain medication as needed. PT/OT daily. TLSO brace on a while up and about. We'll continue to follow patient during his stay in hospital. 2. Appreciate medical, cardiology, urology management 3. Pain management - [place]; Robaxin; Dilaudid 4. DVT prophylaxis - heparin 5. GI prophylaxis - Colace; milk of mag 6. PT/OT - weightbearing as tolerated with walker. TLSO brace on while up and about 7. Encourage incentive spirometer use 8. appreciate consult Time with Patient: Less than 30
--- NOTE | 2023-02-04 09:05 | P.PN ---
Subjective Progress Note Date: 02/04/23 Principal diagnosis: 1. History of recent T10-L1 decompression fusion for T12 fracture; nonhealing incision; DISH; Patient was seen at bedside this morning lying semirecumbent position with family member present during encounter. Patient says his back pain is a little bit better today than it was yesterday. Patient says he is having pain whenever he turns or tries to sit up. Patient denies any significant changes since yesterday. Patient denies any loss of bowel/bladder control. Patient denies any numbness/tingling down the legs. Patient says most the pain is localized to the mid back as well as the flanks. Neurology is following for renal mass. Cardiology and medicine following as well. Patient denies chest pain, fever, shortness breath, nausea, vomiting, change in vision, loss of bowel/bladder control. Objective - Vital Signs Vital signs: Vital Signs Temp 99.3 F 02/04/23 08:00 Pulse 71 02/04/23 08:00 Resp 16 02/04/23 08:00 BP 117/69 02/04/23 08:00 Pulse Ox 92 L 02/04/23 08:00 FiO2 Intake & Output 02/03/23 02/04/23 02/04/23 18:59 06:59 18:59 Intake Total 118 118 Output Total 50 1999 Balance -1999 118 Weight 108.862 kg Intake: Oral 118 118 Output: Urine 50 1999 Other: Voiding Method Urinal Urinal Urinal # Voids 3 - Exam Inspection: Incision about 8 inches in length in the mid back appears to be nonhealing at this time. Incision appears to be open with areas of purulence at the superior portion as well as the distal end. Incision does present with some purulence. Negative for any active drainage. New surgical dressings placed over incision. Negative for any significant ecchymosis. Negative for any open fractures Sensation: Sensation is equal, symmetric, bilaterally throughout the upper and lower extremities Palpation: Moderate TTP over the back at midline knee incision and in the bilateral flanks. Nontender to palpation throughout rest of exam Range of motion: Patient has full range of motion bilateral upper extremities on exam. Patient does have full range of motion bilateral ankles in dorsi/plantar flexion and EHL/FHL. There is limited range of motion and bilateral hips and flexion extension secondary to referred pain from the back. Motor: 4+/5 in all major motor was in bilateral upper extremities. 4+/5 in all major motor was in bilateral lower extremities. Neurovascular status: Radial pulse intact, 2+ bilaterally. Cap refill under 3 seconds in digits of the upper extremities Special tests: Negative Homans bilaterally. Negative clonus bilateral. Negative Bernie bilaterally. - Labs CBC & Chem 7: 02/04/23 05:56 02/04/23 05:56 Labs: Abnormal Lab Results - Last 24 Hours (Table) 02/04/23 02/04/23 Range/Units 05:56 05:56 WBC 12.5 H (3.8-10.6) k/uL RBC 3.46 L (4.30-5.90) m/uL Hgb 9.5 L (13.0-17.5) gm/dL Hct 29.2 L (39.0-53.0) % ESR 118 H (0-15) mm/hr Sodium 132 L (137-145) mmol/L BUN 22 H (9-20) mg/dL Glucose 121 H (74-99) mg/dL Assessment and Plan Assessment: 1. History of recent T10-L1 decompression fusion for T12 fracture; nonhealing incision; DISH; Plan: 1. History of recent T10-L1 decompression fusion for T12 fracture; nonhealing incision; DISH - CT of thoracic spine does show DISH from T1 through L3. Posterior fusion is present from T10-L1 with hardware appears to be stable and intact. Renal mass found on the lower pole of the right kidney. Urology following. Medicine did take culture of back wound yesterday. Cultures still pending at this time. Awaiting cultures before proceeding with any potential intervention. Dressing changed at bedside this morning. Recommend daily dressing changes. At this time we're not recommending any emergent orthopedic surgical intervention. We will wait for cultures at this time. Continue with labs daily. Pain medication as needed. PT/OT daily. TLSO brace on a while up and about. We'll continue to be available as needed during patient stay in h [facility]spital 2. Appreciate medical, cardiology, urology management 3. Pain management - [place]; Robaxin; Dilaudid 4. DVT prophylaxis - heparin 5. GI prophylaxis - Colace; milk of mag 6. PT/OT - weightbearing as tolerated with walker. TLSO brace on while up and about 7. Encourage incentive spirometer use Time with Patient: Less than 30
[2023-02-04] MEDS: CEFEPIME 2 GM in SODIUM CHLORIDE 0.9% 100 ML IVPB SCH ×2 (09:07→20:13)
[2023-02-04] MEDS: SODIUM CHLORIDE 0.9% 1,000 ML IV SCH ×2 (09:07→20:32)
[2023-02-04] MEDS ORDERED: VANCOMYCIN 1,750 MG in SODIUM CHLORIDE 0.9% 500 ML 500 ML IVPB ONE (10:00)
[2023-02-04] MEDS: methocarbamoL 750 MG TAB PO SCH ×3 (10:09→20:13)
--- NOTE | 2023-02-04 16:44 | P.PN ---
Subjective Progress Note Date: 02/04/23 (delayed charting seen at 0900) Patient is a 72-year-old male with history of recent fall with T12 fracture requiring surgery at and a 23 days hopstial stay in [place], [place], recnetly disc overed renal mass, hypertension, dyslipidemia and gout who presented with labile blood pressure and orthostatic hypotension. Apparently, 2 months ago he started to experience orthostatic hypotension, sustaining a fall resulting in thoracic spine fracture. He underwent T10 to L1 fusion on December 20 discharged on January 10.. During that hopsital stay, imaging had also revealed right renal mass concerning for malignancy. He is pending right nephrectomy. He continues to struggle with orthostatic hypotension. He was started on midodrine by his PCP but taking 1 tablet brought his blood pressure high and this was discontinued. Patient seen and examined at bedside with present and Dr. Kang. He attempted to work with therapy today and he had significant orthostatic event. Then later in the day he had an epsisode of decreased BP and Syncope per nursing when trying to have a bowel movement. Patient continues with increased pain, no chest pain or shortness of breath, he was dizzy when up earlier. D/W patient, and karen plan is for OR Irrigation and debridement with wound revision thoracic spine Vital signs reviewed General: Ill appearing, no distress, appears at stated age Cardiovascular: S1S2 reg, no murmur, positive posterior tibial pulse bilateral, Lungs: CTA bilateral, no rhonchi, no rales , no accessory muscle use Abdominal: soft, nontender to palpation, no guarding, no appreciable organomegaly Ext: no gross muscle atrophy, no edema b/l lower extremities, no contractures Neuro: CN II-XI grossly intact, no focal neuro deficits Psych: Alert, oriented, appropriate affect Assessment: Wound dehiscence of thoracic spine wound-concern for possible infection given regression of healing - Plan is for OR for Irrigation and debridement with wound revision thoracic spine - Dilaudid 0.5 -1 mg based on pain scale every 3 hours, norco 7.5 mg 2 tablets every 4 hours valium transitioned to flexeril - Off load wound with frequent turns - Await culture - cefepime 2 grams BID - Vancomycin weight based dosing, monitor Cr and vanco levels for toxicity coccyx pressure ulcer, POA - consult wound care - barrier cream frequent turns Orthostatic hypotension with syncopal event 02/04/23 HTN urgency on arrival Labile blood pressures - compression stocking, NS at 75 cc/hr, - Decrease Lisinopril decreased to 2.5 mg BID given concurrent standing BP - Check cortisol level in AM, consider steroids once this is available. - reconsult cardio given need to sugery early next week - follow BP Right kidney mass - will be having surgery with urology once gets cardio clearance, has outpatient appt on 02/08. Imaging: none new Data Review: Vital signs reviewed. T-max the last 24 hours is 99.3 Labs reviewed White blood cell count 12.5 (up from 11.3). Hemoglobin 9.5 (up from 9.7), ESR 118, sodium 132 DVT prophylaxis: Heparin Anticipated discharge date: Pending Clinical Course Anticipated discharge place: Pending Clinical Course This dictation was prepared using [employer] voice recognition software. Though every attempt is made to correct errors during dictation some may still exist. Objective - Vital Signs Vital signs: Vital Signs Temp 98.9 F 02/04/23 14:00 Pulse 81 02/04/23 14:00 Resp 14 02/04/23 14:00 BP 158/68 02/04/23 14:00 Pulse Ox 94 L 02/04/23 15:30 FiO2 Intake & Output 02/03/23 02/04/23 02/04/23 18:59 06:59 18:59 Intake Total 118 118 Output Total 50 1999 Balance 68 -1999 118 Weight 108.862 kg Intake: Oral 118 118 Output: Urine 50 1999 Other: Voiding Method Urinal Urinal Urinal # Voids 3 - Labs CBC & Chem 7: 02/04/23 05:56 02/04/23 05:56 Labs: Abnormal Lab Results - Last 24 Hours (Table) 02/04/23 02/04/23 Range/Units 05:56 05:56 WBC 12.5 H (3.8-10.6) k/uL RBC 3.46 L (4.30-5.90) m/uL Hgb 9.5 L (13.0-17.5) gm/dL Hct 29.2 L (39.0-53.0) % ESR 118 H (0-15) mm/hr Sodium 132 L (137-145) mmol/L BUN 22 H (9-20) mg/dL Glucose 121 H (74-99) mg/dL Microbiology - Last 24 Hours (Table) 02/03/23 09:45 Wound Culture - Preliminary Back
[2023-02-04] MEDS: VANCOMYCIN 1,750 MG in SODIUM CHLORIDE 0.9% 500 ML 500 ML IVPB SCH (20:13)
[2023-02-05 03:21] VITALS: TEMP 98.5
[2023-02-05] MEDS: HYDROcodone/APAP 7.5-325MG 1 EACH TAB PO PRN (06:19)
[2023-02-05 06:45] LABS: African American GFR (CKD) >90 (>60 ml/min/1.73 sqM); Anion Gap 8 mmol/L; Blood Urea Nitrogen 23 mg/dL (9-20); Calcium 8.9 mg/dL (8.4-10.2); Carbon Dioxide 22 mmol/L (22-30); Chloride 102 mmol/L (98-107); Glucose 132 mg/dL (74-99); Non-African American GFR(CKD) >90 (>60 ml/min/1.73 sqM); Potassium 4.3 mmol/L (3.5-5.1); Sodium 132 mmol/L (137-145)
[2023-02-05 06:47] LABS: African American GFR (CKD) >90 (>60 ml/min/1.73 sqM); Non-African American GFR(CKD) >90 (>60 ml/min/1.73 sqM)
[2023-02-05 06:58] LABS: HCT 31.4 % (39.0-53.0); HGB 9.7 gm/dL (13.0-17.5); Hypochromasia Moderate; MCH 27.4 pg (25.0-35.0); MCHC 30.9 g/dL (31.0-37.0); MCV 88.7 fL (80.0-100.0); Mean Platelet Volume 8.3; Platelet Count 249 k/uL (150-450); RBC 3.54 m/uL (4.30-5.90); RDW 14.2 % (11.5-15.5)
[2023-02-05] MEDS: ATORVASTATIN 20 MG TAB PO SCH (07:44)
[2023-02-05] MEDS: FOLIC ACID 1 MG TAB PO SCH (07:44)
[2023-02-05] MEDS: CEFEPIME 2 GM in SODIUM CHLORIDE 0.9% 100 ML IVPB SCH (07:44)
[2023-02-05] MEDS: VANCOMYCIN 1,750 MG in SODIUM CHLORIDE 0.9% 500 ML 500 ML IVPB SCH (07:44)
[2023-02-05] MEDS: HEPARIN SODIUM,PORCINE/PF 5,000 UNIT/0.5 ML SYRINGE SQ SCH (07:44)
[2023-02-05] MEDS: methocarbamoL 750 MG TAB PO SCH (07:44)
[2023-02-05 08:05] VITALS: RESP 16
[2023-02-05 09:05] VITALS: BP 111/66; PULSE 84
[2023-02-05] MEDS ORDERED: MAGNESIUM HYDROXIDE 2,400 MG/10 ML CUP PO PRN (09:27)
[2023-02-05] MEDS ORDERED: HYDROcodone/APAP 5-325MG 1 EACH TAB PO PRN (09:37)
--- NOTE | 2023-02-05 09:51 | P.PN ---
Subjective Progress Note Date: 02/05/23 Patient is a 72-year-old male with history of recent fall with T12 fracture requiring surgery at and a 23 days hospital stay in [place], [place], recently discovered renal mass, hypertension, dyslipidemia and gout who presented with labile blood pressure and orthostatic hypotension. Apparently, 2 months ago he started to experience orthostatic hypotension, sustaining a fall resulting in thoracic spine fracture. He underwent T10 to L1 fusion on December 20 discharged on January 10. During that hospital stay, imaging had also revealed right renal mass concerning for malignancy. He is pending right nephrectomy. He continues to struggle with orthostatic hypotension. He was started on m idodrine by his PCP but taking 1 tablet brought his blood pressure high and this was discontinued. He was noted to have wound dehiscence. He did have a syncopal episode on 02/04 when his BP dropped when trying to have a bowel movement. Dr. Kang was consulted and plans to take patient to the OR for wound revision on 02/07. Patient seen and examined at bedside. He has no complaints at this time. He has not had a bowel movement in several days. His pain is controlled at this time. Vital signs reviewed General: Ill appearing, no distress, appears at stated age Cardiovascular: S1S2 reg, no murmur, positive posterior tibial pulse bilateral, Lungs: Decreased bs bilateral, no rhonchi, no rales , no accessory muscle use Abdominal: soft, nontender to palpation, no guarding, no appreciable organomegaly Ext: no gross muscle atrophy, no edema b/l lower extremities, no contractures Neuro: CN II-XI grossly intact, no focal neuro deficits Psych: Alert, oriented, appropriate affect Assessment: Wound dehiscence of thoracic spine wound-concern for possible infection given regression of healing - Plan is for OR for Irrigation and debridement with wound revision thoracic spine on 02/07/23 - Dilaudid 0.5 -1 mg based on pain scale every 3 hours, norco 5 mg 2 tablets every 4 hours valium transitioned to flexeril - Off load wound with frequent turns - Await culture - cefepime 2 grams IVPB BID - Vancomycin weight based dosing, monitor Cr and vanco levels for toxicity coccyx pressure ulcer, POA - consult wound care - barrier cream frequent turns Orthostatic hypotension with syncopal event 02/04/23 HTN urgency on arrival Labile blood pressures - compression stocking, contine NS at 75 cc/hr, - Lisinopril decreased to 2.5 mg BID given concurrent standing BP - Cortisol level is normal - case discussed with Dr. Martinez who will re-eval the patient. Agrees with fluid, compression stockings. - follow BP Right kidney mass - will be having surgery with urology once gets cardio clearance, has outpatient appt on 02/08. Imaging: none new Laboratory analysis reviewed and remarkable for white blood cell count 14 (up from 12.5), sodium 132, cortisol 22, ESR 118 Vital signs reviewed from 2:45 AM temperature 98.5, pulse 82, respirations 14, blood pressure 159/74, O2 sat 94% on 3 L nasal cannula DVT prophylaxis: Heparin Anticipated discharge date: Pending Clinical Course Anticipated discharge place: Pending Clinical Course This dictation was prepared using [employer] voice recognition software. Though every attempt is made to correct errors during dictation some may still exist. Objective - Vital Signs Vital signs: Vital Signs Temp 98.5 F 02/05/23 02:45 Pulse 82 02/05/23 02:45 Resp 14 02/05/23 02:45 BP 159/74 02/05/23 02:45 Pulse Ox 94 L 02/05/23 02:45 FiO2 Intake & Output 02/04/23 02/05/23 02/05/23 18:59 06:59 18:59 Intake Total 118 Balance 118 Intake: Oral 118 Other: Voiding Method Urinal Urinal # Voids 4 3 - Labs CBC & Chem 7: 02/05/23 06:16 02/05/23 06:23 Labs: Abnormal Lab Results - Last 24 Hours (Table) 02/04/23 02/05/23 02/05/23 Range/Units 05:56 06:16 06:23 WBC 14.0 H (3.8-10.6) k/uL RBC 3.54 L (4.30-5.90) m/uL Hgb 9.7 L (13.0-17.5) gm/dL Hct 31.4 L (39.0-53.0) % MCHC 30.9 L (31.0-37.0) g/dL ESR 118 H (0-15) mm/hr Sodium (137-145) mmol/L BUN (9-20) mg/dL Creatinine 0.58 L (0.66-1.25) mg/dL Glucose (74-99) mg/dL 02/05/23 Range/Units 06:23 WBC (3.8-10.6) k/uL RBC (4.30-5.90) m/uL Hgb (13.0-17.5) gm/dL Hct (39.0-53.0) % MCHC (31.0-37.0) g/dL ESR (0-15) mm/hr Sodium 132 L (137-145) mmol/L BUN 23 H (9-20) mg/dL Creatinine 0.56 L (0.66-1.25) mg/dL Glucose 132 H (74-99) mg/dL Microbiology - Last 24 Hours (Table) 02/03/23 09:45 Gram Stain - Preliminary Back Wound Culture - Preliminary
--- NOTE | 2023-02-05 11:38 | P.PN ---
Subjective Progress Note Date: 02/05/23 Principal diagnosis: Orthostatic hypotension The patient did have another episode of orthostatic hypotension yesterday. He was started initially on lisinopril at 5 mg daily and the dose has decreased to 25 mg yesterday. His pressure continues to be marginally low and he did have an episode of syncope with low blood pressure yesterday. I'm going to stop the lisinopril completely. We'll continue monitor the blood pressure and heart rate. We will avoid aggressive blood pressure control at this stage. Assessment Labile blood pressure Recent spinal surgery Syncope Plan DC lisinopril completely Continue monitor the blood pressure and heart rate Avoid aggressive blood pressure control Objective - Vital Signs Vital signs: Vital Signs Temp 98.5 F 02/05/23 08:00 Pulse 84 02/05/23 09:05 Resp 16 02/05/23 09:05 BP 111/66 02/05/23 09:05 Pulse Ox 93 L 02/05/23 09:27 FiO2 Intake & Output 02/04/23 02/05/23 02/05/23 18:59 06:59 18:59 Intake Total 118 Balance 118 Intake: Oral 118 Other: Voiding Method Urinal Urinal Urinal # Voids 4 3 - Labs CBC & Chem 7: 02/05/23 06:16 02/05/23 06:23 Labs: Abnormal Lab Results - Last 24 Hours (Table) 02/05/23 02/05/23 02/05/23 Range/Units 06:16 06:23 06:23 WBC 14.0 H (3.8-10.6) k/uL RBC 3.54 L (4.30-5.90) m/uL Hgb 9.7 L (13.0-17.5) gm/dL Hct 31.4 L (39.0-53.0) % MCHC 30.9 L (31.0-37.0) g/dL Sodium 132 L (137-145) mmol/L BUN 23 H (9-20) mg/dL Creatinine 0.58 L 0.56 L (0.66-1.25) mg/dL Glucose 132 H (74-99) mg/dL Microbiology - Last 24 Hours (Table) 02/03/23 09:45 Gram Stain - Preliminary Back Wound Culture - Preliminary Presumptive Staph aureus
[2023-02-05] MEDS: SODIUM CHLORIDE 0.9% 1,000 ML IV SCH (11:48)
[2023-02-05 13:22] LABS: Glucose,Whole Blood 193 mg/dL (70-110)
[2023-02-05] MEDS ORDERED: CHLORHEXIDINE GLUCONATE 15 ML CUP MUCOUS MEM ONE (13:29)
[2023-02-05] MEDS ORDERED: EPINEPHrine 1 MG/ML (MDV) 30 ML VIAL ONE (13:29)
[2023-02-05] MEDS ORDERED: AMIODARONE 50 MG/ML 3 ML VIAL IV ONE (13:29)
[2023-02-05] MEDS ORDERED: CALCIUM CHLORIDE 100 MG/ML 10 ML SYRINGE ONE (13:29)
[2023-02-05] MEDS ORDERED: LORazepam 2 MG/ML INJ IV PRN (13:29)
[2023-02-05] MEDS ORDERED: DEXTROSE 5% IN WATER 50 ML BAG ONE (13:29)
[2023-02-05] MEDS ORDERED: LIDOCAINE 2% SYG (PF) 100 MG/5 ML ONE (13:29)
[2023-02-05] MEDS ORDERED: EPINEPHrine 10 ML SYRINGE (0.1 MG/ML) ONE (13:29)
[2023-02-05] MEDS ORDERED: SODIUM CHLORIDE 0.9% 1,000 ML BAG ONE (13:29)
[2023-02-05] MEDS ORDERED: SODIUM BICARB 8.4% 50 ML SYR (1 MEQ/ML) ONE (13:29)
[2023-02-05] MEDS ORDERED: MAGNESIUM SULFATE SYG 4.06 MEQ/ML SYRINGE ONE (13:29)
[2023-02-05] MEDS ORDERED: propofoL 100 ML IV ONE (13:58)
--- NOTE | 2023-02-05 14:44 | P.EN ---
CODE BLUE Indication: Unresponsive episode Arrived on Scene to find: Patient was sitting in the chair and awake and alert. Per nursing he had been sitting in the chair, unresponsive and they therefore initially triggered a code stroke. I evaluated the patient and his face was symmetrical, carpenter's assistant strength equal, lower extremity movement equal, light touch intact in all 4 extremity is on bilateral face. He was doing well. Is on the phone with the neurologist as we're concerned for possible seizure-like activity with eyes rolling back in his head and a gaze deviation to the right. Initially when he came back to his blood pressure was 160/90, O2 was 81% we were in the process of obtaining a nonrebreather. As he woke up he complained of some substernal chest pain and was belching. We were preparing to get him back to bed from the chair to obtain an ekg and go down for head CT. Patient was worried about pain with head CT due to his recent back fracture. I was on the phone with the neurologist he again repeated this eyes rolling back in his head and gaze deviation to the right with Kusmal type breathing. He then lost pulses and CPR was initiated. Code Course: For full course of the code please see code record. Code called at 1329 Initial rhythm was undetermined as he was in the chair and not yet on the monitor. We started CPR and administered 1 of epi. came began moving but was not verbally responding, he regained a pulse. He was being assted with bag mask ventilation. He was transferred to the bed. Where he again lost pulses. Code course: Epi X 7 Bicarb X 3 Calcium CHloride X 2 Magnesium sulfate IVP X 2 Amiodaron 300 mg X1, 150 mg X 1 Lidocaine X 1 Defib at 150 X 1 Defib at 200 X Levophed infusion Patient went from ventricular fib to asystole and time of was called at 1407 During the code he experience PEA, V fib, and then asystole on the monitor. Dr. Martinez did present to bedside during the code. A Total of 60 minutes of critical care time was spent on the complex care of this patient, including initial assessment during code stroke phase of care. This dictation was prepared using [employer] voice recognition software. Though every attempt is made to correct errors during during dictation some may still exist.
--- NOTE | 2023-02-05 14:59 | P.DS ---
Providers Date of admission: 02/03/23 12:43 Expected date of discharge: 02/05/23 Attending physician: Lashawn Goodrich MD Consults: 02/02/23 03:46 Consult Physician Routine Consulting Provider: [facility] Consult Reason/Comments: Syncope, intermittent hypotension Do you want consulting provider notified?: Yes, Notify in am 02/03/23 09:45 Consult Physician Routine Consulting Provider: Chun Kang Consult Reason/Comments: back pain, recent surgery Do you want consulting provider notified?: Yes 02/04/23 16:27 Consult Physician Routine Consulting Provider: Aracely Maria Consult Reason/Comments: syncope Do you want consulting provider notified?: Yes Primary care physician: Rayray Watkins Hospital Course: Discharge Diagnosis: PEA arrest Orthostatic hypotension with syncopal event 02/04/23 HTN urgency on arrival Labile blood pressures Wound dehiscence of thoracic spine wound-concern for possible infection given regression of healing coccyx pressure ulcer, POA Right kidney mass Hospital Course: Patient is a 72-year-old male with history of recent fall with T12 fracture r equiring surgery at and a 23 days hospital stay in [place], [place], recently discovered renal mass, hypertension, dyslipidemia and gout who presented with labile blood pressure and orthostatic hypotension. Apparently, 2 months ago he started to experience orthostatic hypotension, sustaining a fall resulting in thoracic spine fracture. He underwent T10 to L1 fusion on December 20 discharged on January 10. During that hospital stay, imaging had also revealed right renal mass concerning for malignancy. He is pending right nephrectomy. He continues to struggle with orthostatic hypotension. He was started on midodrine by his PCP but taking 1 tablet brought his blood pressure high and this was discontinued. He was noted to have wound dehiscence. He did have a syncopal episode on 02/04 when his BP dropped when trying to have a bowel movement. Dr. Kang was consulted and plans to take patient to the OR for wound revision on 02/07. He was sitting in the chair on 02/05 and went unresponsive and then he went into a cardiac arrest (see event note). After a prolong code course the patient on 02/05/23 at 1407. A total of 10 minutes of time were spent preparing this complex discharge jean machuca. Patient was discharged on 02/05/23. This dictation was prepared using [employer] voice recognition software. Though every attempt is made to correct errors during dictation some may still e xist. Patient Condition at Discharge: Stable Plan - Discharge Summary New Discharge Prescriptions: No Action Simvastatin [Zocor] 40 mg PO DAILY allopurinoL [Zyloprim] 300 mg PO DAILY PRN PRN Reason: GOUT Folic Acid 1 mg PO DAILY lisinopriL [Prinivil] 10 mg PO DAILY HYDROcodone/APAP 5-325MG [Keystone 5-325] 1 tab PO TID PRN PRN Reason: Pain Acetaminophen Tab [Tylenol Tab] 500 - 1,000 mg PO Q6HR PRN PRN Reason: Pain Multivitamins, Thera [Multivitamin (formulary)] 1 tab PO DAILY Docusate [Colace] 100 mg PO DAILY PRN PRN Reason: Constipation Discharge Medication List Simvastatin [Zocor] 40 mg PO DAILY 05/30/17 [History] Acetaminophen Tab [Tylenol Tab] 500 - 1,000 mg PO Q6HR PRN 02/02/23 [History] Docusate [Colace] 100 mg PO DAILY PRN 02/02/23 [History] Folic Acid 1 mg PO DAILY 02/02/23 [History] HYDROcodone/APAP 5-325MG [Keystone 5-325] 1 tab PO TID PRN 02/02/23 [History] Multivitamins, Thera [Multivitamin (formulary)] 1 tab PO DAILY 02/02/23 [History] allopurinoL [Zyloprim] 300 mg PO DAILY PRN 02/02/23 [History] lisinopriL [Prinivil] 10 mg PO DAILY 02/02/23 [History] Follow up Appointment(s)/Referral(s): Aracely Maria MD [STAFF PHYSICIAN] - 02/08/23 3:15 pm Rayray Watkins MD [Primary Care Provider] - 1-2 days
[2023-02-06] MEDS ORDERED: VANCOMYCIN TROUGH DUE 1 EACH MISC MISCELLANE ONE (07:00)
--- NOTE | 2023-02-08 14:07 | CDI ---
Documentation Clarification Form Date: 02/08/23 From: Mary Galvez Admit Date: 02/03/2023 12:43:00 PM Patient Name: Humberto Mckinney Visit Number: [id number] Discharge Date: 02/05/2023 04:47:00 PM ATTENTION: The Clinical Documentation Specialists (CDI) and [facility] Coding Staff appreciate your assistance in clarifying documentation. Please respond to the clarification below the line at the bottom and electronically sign. The CDI & [facility] Coding staff will review the response and follow-up if needed. Please note: Queries are made part of the Legal Health Record. If you have any questions, please contact the author of this message via ITS. Dr. Chiara Anne, A Coccyx pressure ulcer is documented 02/03, Progress note. Additional clarification regarding the stage of the pressure ulcer is requested. History/Risk Factors: Cardiac Arrest, Pleural Effusion, HTN, HLD, Gout, & Spondylolisthesis. Clinical Indicators: Lab 02/03: Many Presumptive Staphylococcus aureus Location: Coccyx Wound description: He also developed apressure ulcer on his buttock during his hospital stay in [place] coccyx pressure ulcer, POA Treatment: 02/03, 02/04 & 02/05: [email or web address] barrier cream frequent turns Please clarify the stage of pressure ulcer Cocc, if known: [ ] Deep tissue injury [insert location] [ ] Stage 1 Pressure Ulcer [insert location] [ X ] Stage 2 Pressure Ulcer [insert location] [ ] Stage 3 Pressure Ulcer [insert location] [ ] Stage 4 Pressure Ulcer [insert location] [ ] Unstageable Pressure ulcer [insert location] [ ] Other condition, please specify [ ] Unable to determine Clinical Definitions: Stage 1 Pressure Ulcer: intact skin, non-blanching redness of local area Stage 2 Pressure Ulcer: Partial thickness, loss of dermis, pink wound bed Stage 3 Pressure Ulcer: Full thickness tissue loss Stage 4 Pressure Ulcer: Full thickness tissue loss with exposed bone, tendon, or muscle. Unstageable pressure ulcer: Full thickness tissue loss in which the base of the ulcer is covered by slough (yellow, parkinson, cramer, green or brown) and/or eschar (parkinson, brown or black) in the wound bed. MTDD
--- NOTE | 2023-02-08 14:50 | CDI ---
Documentation Clarification Form Date: 02/08/23 From: Mary Galvez Admit Date: 02/03/2023 12:43:00 PM Patient Name: Humberto Mckinney Visit Number: [id number] Discharge Date: 02/05/2023 04:47:00 PM ATTENTION: The Clinical Documentation Specialists (CDI) and [facility] Coding Staff appreciate your assistance in clarifying documentation. Please respond to the clarification below the line at the bottom and electronically sign. The CDI & [facility] Coding staff will review the response and follow-up if needed. Please note: Queries are made part of the Legal Health Record. If you have any questions, please contact the author of this message via ITS. Dr. Chiara Anne, Cardiac Arrest is documented 02/05 Procedure note. Additional clarification regarding the type of Cardiac Event is requested. History/Risk Factors: Disruption of wound, Infection, Pleural Effusion, HTN, HLD, Gout, & Spondylolisthesis. Clinical Indicators: eyes rolling back in his head and a gazedeviation, Hypertension, O2 was 81%, substernal chest pain, & Kusmal type breathing. Troponin: 02/01 <0.012 Treatment: CPR 02/05 Epi X 7 Bicarb X 3 Calcium CHloride X 2 Magnesium sulfateIVPX 2 Amiodaron 300 mg X1, 150 mg X 1 Lidocaine X 1 Defib at 150 X 1 Defib at 200 X Levophed infusion Please clarify the type of Cardiac Event, if known: [ ] STEMI (type 1) [ ] NSTEMI (type 1) [ ] Type II MN due to (please specify etiology) [ ] Cardiac Dysrrhythmia [ ] Cardiac Infarction [ ] Cardiac Tompanade [ X ] Unable to determine [ ] Other Condition, please specify MTDD
--- NOTE | 2023-02-10 16:47 | CDI ---
Documentation Clarification Form Date: 02/10/2023 04:22:18 PM From: Patricia Hinojosa RN, CCDS Email: [email or web address] Admit Date: 02/03/2023 12:43:00 PM Patient Name: Humberto Mckinney Visit Number: [id number] Discharge Date: 02/05/2023 04:47:00 PM ATTENTION: The Clinical Documentation Specialists (CDI) and [facility] Coding Staff appreciate your assistance in clarifying documentation. Please respond to the clarification below the line at the bottom and electronically sign. The CDI & [facility] Coding staff will review the response and follow-up if needed. Please note: Queries are made part of the Legal Health Record. If you have any questions, please contact the author of this message via ITS. Dr. Chiara Anne Your patient had an episode of unresponsiveness and had a low pulse ox. Based on this information and the findings below, is there an additional diagnosis that is clinically appropriate for this patient? History/Risk Factors: recent fall status post back surgery, renal mass, hypertension, dyslipidemia and gout presenting with labile blood pressure as well as orthostatic hypotension. He claims that over 2 months ago he started to experience orthostatic hypotension, sustaining a fall resulting in thoracic spine fracture. He underwent T10 to L1 fusion. During that time, imaging had also revealed right renal mass concerning for malignancy. He is pending right nephrectomy. Clinical Indicators: 02/05 Event note: "Patient was sitting in the chair and awake and alert. Per nursing he had been sitting in the chair, unresponsive and they therefore initially triggered a code stroke. I evaluated the patient and his face was symmetrical, tree wrapper strength equal, lower extremity movement equal, light touch intact in all 4 extremity is on bilateral face. He was doing well. Is on the phone with the neurologist as we're concerned for possible seizure-like activity with eyes rolling back in his head and a gaze deviation to the right. Initially when he came back to his blood pressure was 160/90, O2 was 81% we were in the process of obtaining a nonrebreather. As he woke up he complained of some substernal chest pain and was belching. We were preparing to get him back to bed from the chair to obtain an ekg and go down for head CT. Patient was worried about pain with head CT due to his recent back fracture. I was on the phone with the neurologist he again repeated this eyes rolling back in his head and gaze deviation to the right with Kusmal type breathing. He then lost pulses and CPR was initiated." 02/05 Event note Vital signs: BP 160/90 02/05 Event note Pulse oximetry: 81% Treatment: Oxygen 15L non-rebreather Is there an additional diagnosis that is clinically appropriate for this patient? [ ] Acute Hypoxic Respiratory Failure (pO2 <60 mm Hg or SpO2 <91% on room air) [ ] Other Diagnosis, please specify [ ] Unable to determine This was during a CODE event and should not be distinguished from the code blue as it was not a prolonged separate clinical event MTDD
== END 2023-02-05 16:47 | disposition expired | DRG 920 ==
LOC: EC 20:38 → UNDOADMIN 02-02 03:46 → 6NMEDSUR 02-02 03:46 → 4SSUR 02-02 03:46 → 6NMEDSUR 02-02 05:42 → OBSVTOIN 02-03 12:43
PROVIDERS: ADMIT Internal Medicine; ATTEND Internal Medicine
PROC: 5A12012 Performance of Cardiac Output, Single, Manual (ICD-10-PCS; principal; 2023-02-05)
DX: T81.31XA Disruption of external operation (surgical) wound, not elsewhere classified, initial encounter (principal); J90 Pleural effusion, not elsewhere classified; T81.49XA Infection following a procedure, other surgical site, initial encounter; L89.152 Pressure ulcer of sacral region, stage 2; I46.9 Cardiac arrest, cause unspecified; I49.01 Ventricular fibrillation; I16.0 Hypertensive urgency; I10 Essential (primary) hypertension; I95.1 Orthostatic hypotension; N28.89 Other specified disorders of kidney and ureter; E78.5 Hyperlipidemia, unspecified; M10.9 Gout, unspecified; S22.089D Unspecified fracture of T11-T12 vertebra, subsequent encounter for fracture with routine healing; M54.9 Dorsalgia, unspecified; M19.90 Unspecified osteoarthritis, unspecified site; R73.03 Prediabetes; H51.0 Palsy (spasm) of conjugate gaze; M43.16 Spondylolisthesis, lumbar region; Z74.01 Bed confinement status; Z79.899 Other long term (current) drug therapy; Z98.1 Arthrodesis status; Z87.891 Personal history of nicotine dependence; Y93.E1 Activity, personal bathing and showering; W18.2XXD Fall in (into) shower or empty bathtub, subsequent encounter
CPT/HCPCS: 36415; 71045; 72129; 72132; 80048; 80053; 82533; 82565; 83735; 83880; 84484; 85025; 85027; 85610; 85652; 85730; 87070; 87077; 87186; 87205; 92950; 93005; 94760; 96374; 96376; 99285